=== PATIENT | female | born 1975 | race Hispanic/Latino ===

== ENCOUNTER → 2017-11-07 12:20 | Outpatient (CLI) | payer OTHER, SELFPAY ==
--- NOTE | 2017-11-07 12:43 | DI.MG.S_ITS ---
Patient Name: POLY GOODWIN date: 1975 Sex: F Attending Physician: Agustin Indications: Date: 11/07/2017 12:37 At the request of: JEAN MARIE GARNETT Procedure: MM screening mammo unilat LT UNILATERAL LEFT DIGITAL SCREENING MAMMOGRAM 3D/2D WITH CAD POST MASTECTOMY: 11/07/2017 CLINICAL: Routine screening. Personal history of right breast cancer. Comparison is made to exams dated: 11/03/2016 mammogram, 11/03/2015 mammogram, and 10/30/2014 mammogram - [facility]. There are scattered fibroglandular elements in the left breast. Current study was also evaluated with a Computer Aided Detection (CAD) system. There is possible architectural distortion in the left breast middle depth outer region seen on the craniocaudal view only, best seen on RCC tomosynthesis slice 30/90. There also is possible architectural distortion in the left breast middle depth upper region seen on the mediolateral oblique view only, best seen on RMLO tomosynthesis slice 27/100. There are benign appearing calcifications in the left breast. No other significant masses or calcifications are seen in the breast. IMPRESSION: INCOMPLETE: NEEDS ADDITIONAL IMAGING EVALUATION The possible architectural distortion in the left breast middle depth outer region seen on the craniocaudal view only is indeterminate. Additional views with possible ultrasound are recommended. The possible architectural distortion in the left breast middle depth upper region seen on the mediolateral oblique view only is indeterminate. Additional views with possible ultrasound are recommended. This exam was interpreted at Station ID: [id number]. Continued Report - Page 2 of 2 Patient Name: POLY GOODWIN date: 1975 Sex: F Attending Physician: Agustin Indications: Date: 11/07/2017 12:37 At the request of: JEAN MARIE GARNETT Procedure: MM screening mammo unilat LT NOTE: For mammograms, a report in lay terms will be sent to the patient. Approximately 15% of breast malignancies will not be visualized mammographically. In the management of a palpable breast mass, a negative mammogram must not discourage biopsy of a clinically suspicious lesion. Electronically Signed By: David Troy M.D. ecl/:11/07/2017 19:38:28 copy to: Dayna Leija copy to: SLOANE HANCOCK letter sent: Additional Imaging Needed ACR BI-RADS Category 0: Incomplete 0785F
== END ==
PROVIDERS: PCP Family Medicine; Visit Provider Obstetrics & Gynecology
DX: Z12.31 Encounter for screening mammogram for malignant neoplasm of breast (principal); Z85.3 Personal history of malignant neoplasm of breast
CPT/HCPCS: 77063; 77065

== ENCOUNTER → 2017-11-21 09:18 | Outpatient (CLI) | payer OTHER, SELFPAY ==
--- NOTE | 2017-11-21 | DI.MG.S_ITS ---
UNILATERAL LEFT DIGITAL DIAGNOSTIC MAMMOGRAM 3D/2D WITH ADDITIONAL VIEWS: 11/21/2017 CLINICAL: Additional evaluation requested from prior study. Comparison is made to exams dated: 11/07/2017 mammogram, 11/03/2016 mammogram, and 11/03/2015 mammogram - [facility]. There are scattered fibroglandular elements in the left breast. No significant masses, calcifications, or other findings are seen in the breast. Questioned distortion is related to interval breast surgery. IMPRESSION: NEGATIVE Interval benign post surgical change. There is no mammographic evidence of malignancy. A 1 year screening mammogram is recommended. This exam was interpreted at Station ID: [id number]. NOTE: For mammograms, a report in lay terms will be sent to the patient. Approximately 15% of breast malignancies will not be visualized mammographically. In the management of a palpable breast mass, a negative mammogram must not discourage biopsy of a clinically suspicious lesion. Electronically Signed By: Jarrett Ackerman M.D. cj/:11/21/2017 13:09:10 copy to: Dayna Leija copy to: SLOANE HANCOCK letter sent: Normal Exam ACR BI-RADS Category 1: Negative 3341F
== END ==
PROVIDERS: PCP Family Medicine; Visit Provider Obstetrics & Gynecology
DX: R92.8 Other abnormal and inconclusive findings on diagnostic imaging of breast (principal)
CPT/HCPCS: 77065; G0279

== ENCOUNTER → 2017-12-19 10:56 | Outpatient (CLI) | payer OTHER, SELFPAY ==
[2017-12-19 11:26] LABS: Add Manual Diff / Slide Review NO; Basophils Percent Auto 0.9 % (0-2); Eosinophils Percent Auto 0.7 % (2-4); Hematocrit 42.3 % (36-46); Hemoglobin 14.7 g/dL (12.0-16.0); Lymphocytes Percent Auto 33.7 % (25-40); Mean Corpuscular HGB Conc 34.8 % (30-36); Mean Corpuscular Hemoglobin 31.4 PG (26-34); Mean Corpuscular Volume 90.1 fL (80-100); Monocytes Percent Auto 6.9 % (3-14); Neutrophils Absolute Auto 3200 /uL (3000-5900); Neutrophils Percent Auto 57.8 % (50-75); Platelet Count 218 X10^3/uL (150-400); Red Blood Cell Count 4.69 X10^6/uL (4.0-5.2); Red Cell Distribution Width 13.4 % (11.6-14.8); White Blood Cell Count 5.5 X10^3/uL (4.5-11.0)
[2017-12-19 11:41] LABS: Alanine Aminotransferase 88 IU/L (9-52); Albumin 4.4 g/dL (3.5-5.0); Albumin Globulin Ratio 1.5 (1.0-2.8); Alkaline Phosphatase 99 U/L (38-126); Aspartate Aminotransferase 94 IU/L (14-36); BUN Creatinine Ratio 16.7 (6-22); Bilirubin Total 0.6 mg/dL (0.2-1.3); Blood Urea Nitrogen 10 mg/dL (7-17); Calcium 9.6 mg/dL (8.4-10.2); Carbon Dioxide 25 mmol/L (22-32); Chloride 107 mmol/L (98-107); Estimated Glomerular Filt Rate > 60.0 mL/min (>60); Globulin 2.9 g/dL (1.7-4.1); Glucose 114 mg/dL (70-100); HEMOLYSIS < 15 (0-50); Sodium 142 mmol/L (137-145); Total Protein 7.3 g/dL (6.3-8.2)
[2017-12-19 12:51] LABS: Vitamin D 25 Hydroxy (D3) 31.1 ng/mL (30.0-100.0)
--- NOTE | 2017-12-19 14:36 | PC.NURSE ---
labs today for visit on 12/23. Liver enzymes have been elevated since 12/06.
[2017-12-21 15:16] LABS: Cancer Antigen 27.29 12 U/mL (< 38)
== END ==
PROVIDERS: Nurse Practitioner Gerontology; PCP Family Medicine; Visit Provider Internal Medicine Hematology & Oncology
DX: C50.919 Malignant neoplasm of unspecified site of unspecified female breast (principal); R94.5 Abnormal results of liver function studies
CPT/HCPCS: 36415; 80053; 82306; 85025; 86300

== ENCOUNTER → 2018-06-19 10:40 | Outpatient (CLI) | payer OTHER, SELFPAY ==
[2018-06-19 11:11] LABS: Add Manual Diff / Slide Review NO; Basophils Absolute Auto 100 /uL (0-100); Basophils Percent Auto 0.9 % (0-2); Eosinophils Absolute Auto 0 /uL (0-450); Eosinophils Percent Auto 0.9 % (2-4); Hematocrit 43.4 % (36-46); Hemoglobin 14.9 g/dL (12.0-16.0); Lymphocytes Absolute Auto 2100 /uL (1100-4500); Lymphocytes Percent Auto 38.6 % (25-40); Mean Corpuscular HGB Conc 34.3 % (30-36); Mean Corpuscular Hemoglobin 31.5 PG (26-34); Monocytes Absolute Auto 400 /uL (0-900); Monocytes Percent Auto 7.3 % (3-14); Neutrophils Absolute Auto 2800 /uL (1500-7000); Neutrophils Percent Auto 52.3 % (50-75); Platelet Count 207 X10^3/uL (150-400); Red Blood Cell Count 4.72 X10^6/uL (4.0-5.2); Red Cell Distribution Width 13.1 % (11.6-14.8); White Blood Cell Count 5.4 X10^3/uL (4.5-11.0)
[2018-06-19 11:25] LABS: Alanine Aminotransferase 133 IU/L (9-52); Albumin 4.6 g/dL (3.5-5.0); Albumin Globulin Ratio 1.4 (1.0-2.8); Alkaline Phosphatase 105 U/L (38-126); Aspartate Aminotransferase 113 IU/L (14-36); Bilirubin Total 0.4 mg/dL (0.2-1.3); Blood Urea Nitrogen 12 mg/dL (7-17); Calcium 9.6 mg/dL (8.4-10.2); Carbon Dioxide 26 mmol/L (22-32); Chloride 103 mmol/L (98-107); Estimated Glomerular Filt Rate > 60.0 mL/min (>60); Globulin 3.3 g/dL (1.7-4.1); Glucose 120 mg/dL (70-100); HEMOLYSIS < 15 (0-50); Potassium 3.6 mmol/L (3.4-5.1); Sodium 140 mmol/L (137-145); Total Protein 7.9 g/dL (6.3-8.2)
[2018-06-23 17:38] LABS: Cancer Antigen 27.29 11 U/mL (< 38)
== END ==
PROVIDERS: PCP Family Medicine; Visit Provider Nurse Practitioner Gerontology
DX: C50.211 Malignant neoplasm of upper-inner quadrant of right female breast (principal); Z90.11 Acquired absence of right breast and nipple
CPT/HCPCS: 80053; 85025; 86300

== ENCOUNTER → 2018-06-30 10:38 | Outpatient (CLI) | payer OTHER, SELFPAY ==
--- NOTE | 2018-06-30 10:39 | DI.US.S_ITS ---
PROCEDURE: US ABDOMEN COMPLETE INDICATIONS: BREAST CANCER ABNORMAL LIVER LABS TECHNIQUE: Real-time scanning was performed of the abdominal and retroperitoneal organs, with image documentation. COMPARISON: None. FINDINGS: Liver: Liver is poorly visualized secondary to patient body habitus. It appears to demonstrate increased echogenicity. Gallbladder: Gallbladder demonstrates multiple increased echogenicity within the lumen. Gallbladder wall is within normal limits measuring approximately 2 mm. Biliary ducts: Intrahepatic bile ducts are non-dilated. Extrahepatic bile duct caliber measures 3.6 mm. Normal is 6-7 mm or less in diameter, or 10 mm or less post-cholecystectomy. Pancreas: Visualized portions of the pancreas are sonographically normal. Spleen: Spleen is normal in size and homogeneous in echotexture. Kidneys: Kidneys are normal in size and echotexture. Right kidney measures 9.4 cm long; left kidney measures 9.6 cm long. No hydronephrosis or nephrolithiasis. No solid masses. Aorta: Visualized aorta is normal in caliber at less than 3 cm. Iliacs: Proximal common iliac arteries are normal in caliber at less than 2.5 cm. IVC: Intrahepatic inferior vena cava is patent. Miscellaneous: No free abdominal fluid. IMPRESSION: 1. Poorly visualized liver appearing to demonstrate increased echogenicity suggestive of steatosis. If further concern exists for potential hepatic lesions, CT is recommended. 2. Cholelithiasis without imaging evidence of cholecystitis. Dictated by: Apple Zavala M.D. on 07/03/2018 at 17:28 Approved by: Apple Zavala M.D. on 07/03/2018 at 17:30
== END ==
PROVIDERS: Family Provider Family Medicine; PCP Family Medicine; Visit Provider Nurse Practitioner Gerontology
DX: C50.919 Malignant neoplasm of unspecified site of unspecified female breast (principal); R79.89 Other specified abnormal findings of blood chemistry; K80.80 Other cholelithiasis without obstruction
CPT/HCPCS: 76700

== ENCOUNTER → 2018-11-27 12:02 | Outpatient (CLI) | payer OTHER, SELFPAY ==
--- NOTE | 2018-11-27 | DI.MG.S_ITS ---
UNILATERAL LEFT DIGITAL SCREENING MAMMOGRAM 3D/2D WITH CAD POST MASTECTOMY: 11/27/2018 CLINICAL: Routine screening. Personal history of right breast cancer. Comparison is made to exams dated: 11/21/2017 mammogram, 11/07/2017 mammogram, and 11/03/2016 mammogram - [facility]. There are scattered fibroglandular elements in left breast. Current study was also evaluated with a Computer Aided Detection (CAD) system. No significant masses, calcifications, or other findings are seen in the breast. There has been no significant interval change. IMPRESSION: NEGATIVE There is no mammographic evidence of malignancy. A 1 year screening mammogram is recommended. This exam was interpreted at Station ID: [id number]. NOTE: For mammograms, a report in lay terms will be sent to the patient. Approximately 15% of breast malignancies will not be visualized mammographically. In the management of a palpable breast mass, a negative mammogram must not discourage biopsy of a clinically suspicious lesion. Electronically Signed By: Maddi bar/kamilah:11/27/2018 16:22:27 copy to: Shaunna Velez copy to: FLACO CEDILLO letter sent: Normal Exam ACR BI-RADS Category 1: Negative 3341F
== END ==
PROVIDERS: PCP Family Medicine; Visit Provider Family Medicine
DX: Z12.31 Encounter for screening mammogram for malignant neoplasm of breast (principal); Z85.3 Personal history of malignant neoplasm of breast
CPT/HCPCS: 77063; 77067

== ENCOUNTER → 2019-02-07 15:12 | Outpatient (CLI) | payer OTHER, SELFPAY ==
[2019-02-08 16:22] LABS: Cancer Antigen 125 17 U/mL (0-35)
== END ==
PROVIDERS: PCP Family Medicine; Visit Provider Obstetrics & Gynecology
DX: N83.8 Other noninflammatory disorders of ovary, fallopian tube and broad ligament (principal)
CPT/HCPCS: 36415; 86304

== ENCOUNTER 2019-03-15 10:01 | Day surgery (SDC) | payer OTHER, SELFPAY ==
[2019-03-07 15:12] VITALS: BMI 37.2
[2019-03-15] VITALS (7 sets, daily range): BP systolic 119–142; BP diastolic 74–94; PULSE 80–103; RESP 9–17; TEMP 36.2–36.6; O2SAT 92–99; BMI 37.2
--- NOTE | 2019-03-15 | PATH_ITS ---
[facility] Accession Number: [id number] . 01 Material submitted: . ovary - LEFT OVARY? . 01 Diagnosis: Left Ovary, Oophorectomy: Mature adipose tissue with fat necrosis and fibrous adhesions. Ovarian tissue not identified. No evidence of neoplasm. MRV 03/20/2019 1427 Local . 01 Electronically signed: . Karthik Carreno MD, PhD, Pathologist NPI- [id number] . 01 Gross description: . Received in formalin, labeled left ovary, is a piece of pale yellow rubbery tissue partially bisected (3.3 x 2.0 x 0.4 cm). Entirely submitted in cassettes A1 and A2 with each half bisected further. ([id number]) /MRV 03/16/2019 1341 Local . 01 Pathologist provided ICD-10: N83.8, N99.4 . 01 CPT . 935280 Performed at: [address] [facility] [address], [place], [place] [id number] MD Ricky Gaming MD Phone: [phone]
[2019-03-15] MEDS: LACTATED RINGERS 1,000 ML 100 ML IV (10:50)
--- NOTE | 2019-03-15 10:50 | PM.HP.1 ---
History of Present Illness History of Present Illness Date Patient Seen: 03/15/19 Time Patient Seen: 10:50 Chief complaint: [id number] Narrative: Patient is a 43-year-old 4 para 3 with a left ovarian cyst Patient previously had her uterus and right ovary and both tubes removed. Patient History Medical History (Updated 06/22/18 @ 12:37 by ASIA Stokes) Breast cancer, right (Resolved 2014) 4 (Resolved) Normal Papanicolaou smear (Resolved) Surgical History (Updated 03/07/19 @ 15:17 by Pushpa Pal RN) History of third molar tooth extraction (Resolved 1998) History of total mastectomy (Resolved 2014) S/P breast reconstruction, right (Acute) Status post delivery (Resolved 11/05/13) Status post dilation and curettage (Resolved 2010) Status post laparoscopic supracervical hysterectomy (Resolved 02/02/16) Family & Social History Family History (Updated 01/05/18 @ 15:07 by Maci Claudio) Grandfather Diabetes mellitus Grandmother Diabetes mellitus Grandmother Diabetes mellitus Smoker Emphysema of lung Father No problems noted. Social History: household members children Tobacco & Substance use: Smoking Status Never smoker Meds Home Medications and Allergies Home Medications Medication Instructions Recorded Confirmed Type cholecalciferol (vitamin D3) 2,000 mg PO QDAY #0 03/25/17 03/15/19 History [Vitamin D3] multivitamin [Multiple Vitamins] 1 tab PO QDAY #0 03/25/17 03/15/19 History tamoxifen 20 mg PO DAILY #90 tab 09/27/18 03/15/19 Rx Allergies Allergy/AdvReac Type Severity Reaction Status Date / Time No Known Drug Allergies Allergy Verified 03/15/19 10:29 Exam Vital Signs (past 8 hours): - 03/15/19 10:34 Temperature 97.8 F Pulse Rate 89 Respiratory Rate 17 Blood Pressure 142/94 H Pulse Oximetry 98 Oxygen Delivery Method Room Air Narrative Exam Narrative: HEENT: No thyromegaly, no anterior cervical or supraclavicular lymphadenopathy. Breasts: Status post reconstruction Lungs:Clear to auscultation bilaterally, no wheezes. Cardiovascular: Regular rate and rhythm, no murmurs, rubs, or gallops. Abdomen: Well-healed scars. No hepatosplenomegaly. No masses palpable. External genitalia: Normal Vagina: Normal Cervix: Well supported Bimanual exam: Left adnexal fullness and tenderness Rectal: No masses. Assessment & Plan Assessment & Plan narrative: Assessment: 43-year-old 4 para 3 with a left ovarian cyst Plan: Laparoscopic removal of the left ovary The risks, benefits, and alternatives to the procedure were explained to the patient. The risks including bleeding, infection, injury to bowel, bladder, or ureters. She understands these risks and agrees to proceed. A full par Q was held and consent form was signed. Time Spent With Patient Time with patient: 15-24 minutes
--- NOTE | 2019-03-15 10:52 | PM.PREOP ---
Pre-operative Note Interval Note History & Physical reviewed/Exam performed by Physician: Yes Changes to H&P: No
--- NOTE | 2019-03-15 11:35 | SUR.OPER ---
Lithotomy on padded OR bed, head on pillow, arms gel wrapped and tucked at sides. Legs secured in padded yellow fins stirrups.
[2019-03-15] MEDS: BUPIVACAINE 0.5% W/ EPI (PF) VIAL 30 ML INJ (11:40)
--- NOTE | 2019-03-19 06:43 | PM.GYNOP.1 ---
Operative Date/Time/Diagnoses Date of procedure: 03/15/19 Time of procedure: 12:30 Pre-op diagnosis: Left ovarian cyst Post-op diagnosis: same Procedure & Clinicians Procedure: Procedures Operation Date: 03/15/19 11:15 Actual Procedures Side Surgeon p Laparoscopic Oophorectomy, lysis of omental adhesions Left Shaunna Velez MD Indications: Left ovarian cyst Surgeon: Shaunna Velez Anesthesia Type: General Operative Notes Findings: Adhesions of the left adnexa Omental to anterior abdominal wall adhesions Normal liver, gallbladder, and appendix Closure Type: primary Specimen(s): other (Left ovary) Estimated blood loss (mL): 10 Blood products transfused: none Procedure in detail: After informed consent was obtained, the patient was taken to the operating room where she was placed in the dorsal supine position. After adequate general endotracheal anesthesia was achieved, she was placed in the dorsal lithotomy position, and prepped and draped in the usual sterile fashion. A time-out was performed. A moistened sponge stick was placed into the vagina. Attention was then turned to the abdomen where 6 cc of 0.5% Marcaine were injected into the umbilical fold. A 5 mm incision was made. A long Veress needle was placed into the peritoneal cavity, and its placement confirmed by aspiration and drop test. The long Veress needle was removed. A long 5 mm trocar was placed without difficulty. Two other incisions were made after 6 cc of 0.5% Marcaine with epinephrine were injected. One was midway between the pubic symphysis and umbilicus on the left side, the other was just above the pubic symphysis. Two long 5 mm trocars were placed under direct visualization. The probe was placed through the lateral trocar. There were significant adhesions around the left adnexa. The ovary was identified and grasped with an atraumatic grasper. Using the Endo Prabhu, the adhesions were taken down around the left ovary. The PlasmaKinetic was used to cauterize the infundibulopelvic ligament on the left side. The left ovary was placed into the pelvis. Using the PlasmaKinetic omental to anterior abdominal wall adhesions were taken down with cautery and cut. Hemostasis was achieved. Hemostasis was also achieved in the left adnexa. The 5 mm trocar was removed from the suprapubic area. The incision was extended to 12 mm. A 12 mm trocar was placed. The small endobag was placed through the suprapubic trocar. The ovary was placed into the bag and removed through the trocar. Hemostasis was achieved in the pelvis. The instruments were removed from the abdomen. The CO2 was allowed to escape. The suprapubic incision was closed on the fascia using 0 Vicryl. All of the incisions were closed on the skin with 4-0 Biosyn in a subcuticular fashion. Steri-Strips, 2 x 2, and op site were placed. The moistened sponge stick was removed from the vagina. Sponge, lap, and instrument counts were correct x2. The patient tolerated the procedure well, and was taken to PACU in stable condition. Complications: none Post-operative Condition: stable Disposition: PACU Plan for aftercare: Home after recovery
== END 2019-03-15 13:20 | disposition home or self-care (01) ==
PROVIDERS: PCP Family Medicine; Visit Provider Obstetrics & Gynecology
PROC: (CPT 58661; principal; 2019-03-15 11:15)
DX: N83.8 Other noninflammatory disorders of ovary, fallopian tube and broad ligament (principal); K66.0 Peritoneal adhesions (postprocedural) (postinfection)
CPT/HCPCS: 58661; J1100; J1885; J2250; J2405; J2704; J3010

== ENCOUNTER → 2020-01-03 11:03 | Outpatient (CLI) | payer OTHER, SELFPAY ==
--- NOTE | 2020-01-03 11:14 | DI.MG.S_ITS ---
Patient Name: POLY GOODWIN date: 1975 Sex: F Attending Physician: Pola Indications: Date: 01/03/2020 11:11 At the request of: ROSI SHAH Procedure: MM screening mammo unilat LT UNILATERAL LEFT DIGITAL SCREENING MAMMOGRAM 3D/2D WITH CAD POST MASTECTOMY: 01/03/2020 CLINICAL: Routine screening. Personal history of right breast cancer. Comparison is made to exams dated: 11/21/2017 mammogram, 11/07/2017 mammogram, 11/03/2016 mammogram, and 11/03/2015 mammogram - [facility]. There are scattered fibroglandular elements in left breast. Current study was also evaluated with a Computer Aided Detection (CAD) system. No significant masses, calcifications, or other findings are seen in the breast. There has been no significant interval change. IMPRESSION: NEGATIVE There is no mammographic evidence of malignancy. A 1 year screening mammogram is recommended. This exam was interpreted at Station ID: [id number]. NOTE: For mammograms, a report in lay terms will be sent to the patient. Approximately 15% of breast malignancies will not be visualized mammographically. In the management of a palpable breast mass, a negative mammogram must not discourage biopsy of a clinically suspicious lesion. Electronically Signed By: Farzana lopez/kamilah:01/03/2020 12:30:28 copy to: Shaunna Velez copy to: FLACO CEDILLO letter sent: Normal Exam Continued Report - Page 2 of 2 Patient Name: POLY GOODWIN date: 1975 Sex: F Attending Physician: Pola Indications: Date: 01/03/2020 11:11 At the request of: ROSI SHAH Procedure: MM screening mammo unilat LT ACR BI-RADS Category 1: Negative 3341F
== END ==
PROVIDERS: PCP Family Medicine; Referring Provider Family Medicine; Visit Provider Internal Medicine Hematology & Oncology
DX: Z12.31 Encounter for screening mammogram for malignant neoplasm of breast (principal); Z85.3 Personal history of malignant neoplasm of breast
CPT/HCPCS: 77063; 77067

== ENCOUNTER → 2021-03-24 09:15 | Outpatient (CLI) | payer OTHER, SELFPAY ==
--- NOTE | 2021-03-24 09:16 | DI.MG.S_ITS ---
UNILATERAL LEFT DIGITAL SCREENING MAMMOGRAM 3D/2D WITH CAD POST MASTECTOMY: 03/24/2021 CLINICAL: Routine screening. Personal history of right breast cancer. Comparison is made to exams dated: 01/03/2020 mammogram, 11/27/2018 mammogram, and 11/21/2017 mammogram - [facility]. There are scattered fibroglandular elements in left breast. Current study was also evaluated with a Computer Aided Detection (CAD) system. No significant masses, calcifications, or other findings are seen in the breast. There has been no significant interval change. IMPRESSION: NEGATIVE There is no mammographic evidence of malignancy. A 1 year screening mammogram is recommended. This exam was interpreted at Station ID: [id number]. NOTE: For mammograms, a report in lay terms will be sent to the patient. Approximately 15% of breast malignancies will not be visualized mammographically. In the management of a palpable breast mass, a negative mammogram must not discourage biopsy of a clinically suspicious lesion. Electronically Signed By: Elio lyons/kamilah:03/24/2021 12:01:34 copy to: Shaunna Velez letter sent: Normal Exam ACR BI-RADS Category 1: Negative 3341F
== END ==
PROVIDERS: Referring Provider Family Medicine; Visit Provider Family Medicine
DX: Z12.31 Encounter for screening mammogram for malignant neoplasm of breast (principal); Z85.3 Personal history of malignant neoplasm of breast
CPT/HCPCS: 77063; 77067

== ENCOUNTER → 2022-04-09 13:47 | Outpatient (CLI) | payer OTHER, SELFPAY ==
--- NOTE | 2022-04-09 13:48 | DI.MG.S_ITS ---
UNILATERAL LEFT DIGITAL SCREENING MAMMOGRAM 3D/2D WITH CAD: 04/09/2022 CLINICAL: Routine screening. Personal history of right breast cancer. Comparison is made to exams dated: 03/24/2021 mammogram, 01/03/2020 mammogram, and 11/27/2018 mammogram - [facility]. There are scattered areas of fibroglandular density in the left breast (category b / 25%-50% glandular tissue). Current study was also evaluated with a Computer Aided Detection (CAD) system. No significant masses, calcifications, or other findings are seen in the breast. There has been no significant interval change. IMPRESSION: NEGATIVE There is no mammographic evidence of malignancy. A 1 year screening mammogram is recommended. This exam was interpreted at Station ID: [id number]. NOTE: For mammograms, a report in lay terms will be sent to the patient. Approximately 15% of breast malignancies will not be visualized mammographically. In the management of a palpable breast mass, a negative mammogram must not discourage biopsy of a clinically suspicious lesion. Electronically Signed By: Raymond Dinh M.D., jr/kamilah:04/09/2022 14:16:11 copy to: Shaunna Velez letter sent: Normal Exam ACR BI-RADS Category 1: Negative 3341F
== END ==
PROVIDERS: Referring Provider Internal Medicine Hematology & Oncology; Visit Provider Internal Medicine Hematology & Oncology
DX: Z12.31 Encounter for screening mammogram for malignant neoplasm of breast (principal); C50.911 Malignant neoplasm of unspecified site of right female breast
CPT/HCPCS: 77063; 77067

== ENCOUNTER → 2023-04-11 13:16 | Outpatient (CLI) | payer OTHER, SELFPAY ==
--- NOTE | 2023-04-11 13:17 | DI.MG.S_ITS ---
UNILATERAL LEFT DIGITAL SCREENING MAMMOGRAM 3D/2D WITH CAD POST MASTECTOMY: 04/11/2023 CLINICAL: Routine screening. Personal history of right breast cancer. Comparison is made to exams dated: 04/09/2022 mammogram, 03/24/2021 mammogram, and 01/03/2020 mammogram - [facility]. There are scattered areas of fibroglandular density in the left breast (category b / 25%-50% glandular tissue). Current study was also evaluated with a Computer Aided Detection (CAD) system. No significant masses, calcifications, or other findings are seen in the breast. There has been no significant interval change. IMPRESSION: NEGATIVE There is no mammographic evidence of malignancy. A 1 year screening mammogram is recommended. This exam was interpreted at Station ID: [id number]. NOTE: For mammograms, a report in lay terms will be sent to the patient. Approximately 15% of breast malignancies will not be visualized mammographically. In the management of a palpable breast mass, a negative mammogram must not discourage biopsy of a clinically suspicious lesion. Electronically Signed By: Maddi bar/kamilah:04/11/2023 15:57:15 copy to: Shaunna Velez letter sent: Normal Exam ACR BI-RADS Category 1: Negative 3341F
== END ==
PROVIDERS: PCP Nurse Practitioner; Referring Provider Internal Medicine Hematology & Oncology; Visit Provider Internal Medicine Hematology & Oncology
DX: Z12.31 Encounter for screening mammogram for malignant neoplasm of breast (principal); Z85.3 Personal history of malignant neoplasm of breast
CPT/HCPCS: 77063; 77067

== ENCOUNTER → 2023-05-24 10:43 | Outpatient (CLI) | payer OTHER, SELFPAY ==
[2023-05-24 11:44] LABS: Alanine Aminotransferase 25 IU/L (<35); Albumin 4.5 g/dL (3.5-5.0); Albumin Globulin Ratio 1.6 (1.0-2.8); Alkaline Phosphatase 96 U/L (38-126); Aspartate Aminotransferase 29 IU/L (14-36); BUN Creatinine Ratio 24.5 (6-22); Bilirubin Total 0.7 mg/dL (0.2-1.3); Blood Urea Nitrogen 13 mg/dL (7-17); Calcium 9.8 mg/dL (8.4-10.2); Carbon Dioxide 23 mmol/L (22-32); Chloride 103 mmol/L (98-107); Cholesterol 226 mg/dL (140-199); Estimated Glomerular Filt Rate > 60 mL/min (>60); Globulin 2.9 g/dL (1.7-4.1); Glucose 155 mg/dL (70-100); HDL Cholesterol 56 mg/dL (40-60); HEMOLYSIS 48 (0-50); LDL Cholesterol Calculated 121 mg/dL (<100); Potassium 4.6 mmol/L (3.4-5.1); Sodium 136 mmol/L (137-145); Total Protein 7.4 g/dL (6.3-8.2); Triglycerides 246 mg/dL (35-150)
[2023-05-24 11:57] LABS: Add Manual Diff / Slide Review NO; Basophils Absolute Auto 0 /uL (0-100); Basophils Percent Auto 0.6 % (0-2); Eosinophils Absolute Auto 0 /uL (0-450); Eosinophils Percent Auto 0.7 % (2-4); Hematocrit 42.1 % (36-46); Hemoglobin 14.5 g/dL (12.0-16.0); Lymphocytes Absolute Auto 1900 /uL (1100-4500); Lymphocytes Percent Auto 28.6 % (25-40); Mean Corpuscular HGB Conc 34.5 % (30-36); Monocytes Absolute Auto 400 /uL (0-900); Monocytes Percent Auto 6.9 % (3-14); Neutrophils Absolute Auto 4100 /uL (1500-7000); Neutrophils Percent Auto 63.2 % (50-75); Platelet Count 199 X10^3/uL (150-400); Red Blood Cell Count 4.84 X10^6/uL (4.0-5.2); Red Cell Distribution Width 13.7 % (11.6-14.8); White Blood Cell Count 6.5 X10^3/uL (4.5-11.0)
[2023-05-24 12:01] LABS: Free T3, Triiodothyronine Free 4.02 pg/mL (2.77-5.27); Free T4, Direct Thyroxine 1.08 ng/dL (0.78-2.19)
[2023-05-24 12:15] LABS: Thyroid Stimulating Hormone 1.08 uIU/mL (0.47-4.68)
[2023-05-24 12:40] LABS: HIV 1 & 2 Ab/Ag 4th Gen Combo NEGATIVE (NEGATIVE); Hep C Virus Ab w/Reflex Quant NEGATIVE s/c (NEGATIVE)
[2023-05-24 12:47] LABS: Creatinine Urine Random 62.8 mg/dL
[2023-05-24 12:52] LABS: Microalbumin Urine Random < 0.6 mg/dL (0-1.6)
== END ==
PROVIDERS: PCP Nurse Practitioner; Referring Provider Nurse Practitioner; Visit Provider Nurse Practitioner
DX: Z00.00 Encounter for general adult medical examination without abnormal findings (principal); Z11.59 Encounter for screening for other viral diseases; Z11.4 Encounter for screening for human immunodeficiency virus [HIV]
CPT/HCPCS: 36415; 80053; 80061; 82043; 82570; 84439; 84443; 84481; 85025; 86803; 87389

== ENCOUNTER → 2024-04-27 12:57 | Outpatient (CLI) | payer OTHER, SELFPAY ==
--- NOTE | 2024-04-27 12:58 | DI.MG.S_ITS ---
UNILATERAL LEFT DIGITAL SCREENING MAMMOGRAM 3D/2D WITH CAD POST MASTECTOMY: 04/27/2024 CLINICAL: Routine screening. Personal history of right breast cancer. Comparison is made to exams dated: 04/11/2023 mammogram, 04/09/2022 mammogram, 03/24/2021 mammogram, and 01/03/2020 mammogram - [facility]. There are scattered areas of fibroglandular density (category b / 25%-50% glandular tissue). Current study was also evaluated with a Computer Aided Detection (CAD) system. No significant masses, calcifications, or other findings are seen in the breast. There has been no significant interval change. IMPRESSION: NEGATIVE There is no mammographic evidence of malignancy. A 1 year screening mammogram is recommended. This exam was interpreted at Station ID: [id number]. NOTE: For mammograms, a report in lay terms will be sent to the patient. Approximately 15% of breast malignancies will not be visualized mammographically. In the management of a palpable breast mass, a negative mammogram must not discourage biopsy of a clinically suspicious lesion. Electronically Signed By: Reno magallon/kamilah:04/27/2024 13:58:47 copy to: Shaunna Velez copy to: JULIETTE MARIE letter sent: Normal Exam ACR BI-RADS Category 1: Negative
== END ==
LOC: MAMMO 12:58
PROVIDERS: PCP Student in an Organized Health Care Education/Training Program; Referring Provider Student in an Organized Health Care Education/Training Program; Visit Provider Student in an Organized Health Care Education/Training Program
DX: Z12.31 Encounter for screening mammogram for malignant neoplasm of breast (principal); Z85.3 Personal history of malignant neoplasm of breast; Z90.11 Acquired absence of right breast and nipple
CPT/HCPCS: 77063; 77067

== ENCOUNTER 2024-05-14 12:26 | Day surgery (SDC) | payer OTHER, SELFPAY ==
[2024-05-14 12:50] VITALS: BP 116/80; PULSE 70; RESP 14; TEMP 36.2; O2SAT 98
[2024-05-14] MEDS: SODIUM CHLORIDE 0.9% 1,000 ML 150 ML IV (12:54)
--- NOTE | 2024-05-14 13:32 | PM.HP.IH.1 ---
History of Present Illness History of Present Illness Date Patient Seen: 05/14/24 Time Patient Seen: 13:32 Chief complaint: SDC Narrative: 48-year-old white female presents for initial screening colonoscopy. No previous colonoscopy. Patient had a weight loss over the past year using terms appetite, has not used it for the last 3 months due to cost. [facility] Medical History (Updated 05/14/24 @ 13:33 by Guille Avendano MD) Colon cancer screening (~05/14/24) Overweight (BMI 25.0-29.9) History of breast cancer in female Hypertension 4 Normal Papanicolaou smear Breast cancer, right (2014) Surgical History S/P breast reconstruction, right History of total mastectomy (2014) Status post laparoscopic supracervical hysterectomy (02/02/16) Status post dilation and curettage (2010) History of third molar tooth extraction (1998) Status post delivery (11/05/13) Family History Grandfather Diabetes mellitus Grandmother Diabetes mellitus Grandmother Diabetes mellitus Smoker Emphysema of lung Father No problems noted. Social History household members: children Smoking Status: Never smoker alcohol intake: never Meds Home Medications and Allergies Home Medications Medication Instructions Recorded Confirmed Type cholecalciferol (vitamin D3) 10 2,000 mg PO QDAY ##0 03/25/17 05/14/24 History mcg (400 unit) capsule (Vitamin D3) multivitamin (Multiple Vitamins 1 tab PO QDAY ##0 03/25/17 05/14/24 History tablet) lisinopril 5 mg tablet 5 mg PO DAILY #90 tabs 05/24/23 05/14/24 Rx tirzepitide See Rx Instructions .Route 11/17/23 05/14/24 Rx .COMPLEX 90 days #3 ea peg 3350-electrolytes 236 240 ml PO Q10M #4,000 mL 05/03/24 05/14/24 Rx gram-22.74 gram-6.74 gram-5.86 gram solution (Golytely) Allergies Allergy/AdvReac Type Severity Reaction Status Date / Time No Known Drug Allergies Allergy Verified 05/24/23 10:05 Review of Systems Review of Systems ROS: Yes All systems reviewed with the patient and are negative except as otherwise documented Exam Vital Signs (past 8 hours): - 05/14/24 12:50 Temperature 97.2 F L Pulse Rate 70 Respiratory Rate 14 Blood Pressure 116/80 Pulse Oximetry 98 Oxygen Delivery Method Room Air Oxygen Delivery Method Room Air Narrative Exam Narrative: Gen: NAD, sitting comfortably in bed, appears well HEENT: Sclera are anicteric, head is normocephalic and atraumatic, trachea is midline. CV: RRR, no JVD Resp: clear to auscultation bilaterally, equal chest wall movement bilaterally Abd: soft, nontender, normoactive bowel sounds Ext: no edema, full range of motion Neuro: Cranial nerves II-XII grossly intact, no focal deficits Skin: No erythema or ecchymosis Assessment & Plan Assessment and plan (1) Colon cancer screening: Status: Acute Assessment & Plan narrative: Patient presents for colonoscopy Risks, benefits, alternatives to colonoscopy explained, including but not limited to bowel perforation or other serious complication requiring surgery at less than 1 in 5000 colonoscopies, abdominal pain, cramping or bleeding and less than 1% of colonoscopies, and the chances that we find a diagnosis that would require further intervention of about 2%. Patient agrees to proceed. Time-Based Coding :: [TOTAL MINUTES] spent with patient and on the chart (including review of chart, obtaining history, exam, reviewing outside data, placing orders, documenting exam and treatment plan, and counseling patient) on [DATE]. [employer] Document charge(s): No
--- NOTE | 2024-05-14 13:51 | PM.OP.COLON ---
Operative Date/Time/Diagnoses Date of procedure: 05/14/24 Time of procedure: 13:52 Pre-op diagnosis: Colon screening Post-op diagnosis: same (Diverticulosis, internal hemorrhoids) Procedure & Clinicians Study performed: Colonoscopy Same procedure as scheduled: Yes Indications: Screening Surgeon: Guille Avendano Procedure Notes SCOAP/Timeout: Performed Procedure in detail: Time-out was performed. Mac was induced. Patient was placed in left lateral decubitus position. The perineum was inspected without any gross abnormality. Lubricated pediatric colonoscope was inserted and advanced to the cecum. The terminal ileum was intubated. The colonoscope was withdrawn slowly inspecting the circumference of the colon. Patient had pancolonic diverticulosis. Very small polyps may have been missed, prep quality was adequate. Retroflexed view of the rectum showed small, non prolapsed nonbleeding internal hemorrhoids. The scope was withdrawn the patient was taken to PACU in good condition. Scope withdrawal time: 6 Sedation minutes: 9 Findings: divertiulosis and internal hemorrhoids Specimen(s): none sent Complications: none Post-procedure Recommendations: Colonoscopy in 10 years Follow up: as needed Disposition: PACU
[2024-05-14 13:55] VITALS: BP 96/69; PULSE 78; RESP 16; TEMP 36.1; O2SAT 97
[2024-05-14 14:00] VITALS: BP 100/71; PULSE 70; RESP 15; O2SAT 97
[2024-05-14 14:07] VITALS: BP 100/69; PULSE 65; RESP 13; O2SAT 97
[2024-05-14 14:13] VITALS: BP 106/76; PULSE 66
== END 2024-05-14 14:30 | disposition home or self-care (01) ==
PROVIDERS: PCP Student in an Organized Health Care Education/Training Program; Referring Provider Surgery; Visit Provider Surgery
PROC: 0DJD8ZZ Inspection of Lower Intestinal Tract, Via Natural or Artificial Opening Endoscopic (ICD-10-PCS; CPT 45378; principal; 2024-05-14 13:30)
DX: Z12.11 Encounter for screening for malignant neoplasm of colon (principal); K57.30 Diverticulosis of large intestine without perforation or abscess without bleeding; K64.8 Other hemorrhoids; I10 Essential (primary) hypertension; Z85.3 Personal history of malignant neoplasm of breast; Z90.710 Acquired absence of both cervix and uterus
CPT/HCPCS: G0121; J2405; J2704

== ENCOUNTER → 2024-05-28 09:47 | Outpatient (CLI) | payer OTHER, SELFPAY ==
[2024-05-28 10:52] LABS: Creatinine Urine Random 12.28 mg/dL
[2024-05-28 10:54] LABS: Hemoglobin A1C% w Est Avg Glu 5.7 % (4.0-6.0)
[2024-05-28 10:57] LABS: Microalbumin Urine Random < 0.6 mg/dL (0-1.6)
[2024-05-28 11:04] LABS: Alanine Aminotransferase 24 IU/L (<35); Albumin Globulin Ratio 1.7 (1.0-2.8); Alkaline Phosphatase 69 U/L (38-126); Aspartate Aminotransferase 29 IU/L (14-36); BUN Creatinine Ratio 22.7 (6-22); Bilirubin Total 0.7 mg/dL (0.2-1.3); Blood Urea Nitrogen 15 mg/dL (7-17); Calcium 10.4 mg/dL (8.4-10.2); Carbon Dioxide 24 mmol/L (22-32); Chloride 103 mmol/L (98-107); Cholesterol 297 mg/dL (140-199); Estimated Glomerular Filt Rate > 60 mL/min (>60); Glucose 114 mg/dL (70-100); HDL Cholesterol 95 mg/dL (40-60); HEMOLYSIS 23 (0-50); LDL Cholesterol Calculated 181 mg/dL (<100); Potassium 4.2 mmol/L (3.4-5.1); Sodium 137 mmol/L (137-145); Triglycerides 107 mg/dL (35-150)
[2024-05-28 18:05] LABS: Add Manual Diff / Slide Review NO; Basophils Absolute Auto 0 /uL (0-100); Basophils Percent Auto 0.4 % (0-2); Eosinophils Absolute Auto 0 /uL (0-450); Eosinophils Percent Auto 0.6 % (2-4); Hematocrit 43.5 % (36-46); Hemoglobin 14.7 g/dL (12.0-16.0); Lymphocytes Absolute Auto 1600 /uL (1100-4500); Lymphocytes Percent Auto 33.7 % (25-40); Mean Corpuscular HGB Conc 33.8 % (30-36); Mean Corpuscular Hemoglobin 30.7 PG (26-34); Mean Corpuscular Volume 90.8 fL (80-100); Monocytes Absolute Auto 300 /uL (0-900); Monocytes Percent Auto 5.7 % (3-14); Neutrophils Absolute Auto 2800 /uL (1500-7000); Neutrophils Percent Auto 59.6 % (50-75); Platelet Count 230 X10^3/uL (150-400); Red Blood Cell Count 4.79 X10^6/uL (4.0-5.2); Red Cell Distribution Width 13.5 % (11.6-14.8); White Blood Cell Count 4.7 X10^3/uL (4.5-11.0)
== END ==
PROVIDERS: PCP Student in an Organized Health Care Education/Training Program; Referring Provider Student in an Organized Health Care Education/Training Program; Visit Provider Student in an Organized Health Care Education/Training Program
DX: R73.9 Hyperglycemia, unspecified (principal); E78.5 Hyperlipidemia, unspecified; I10 Essential (primary) hypertension
CPT/HCPCS: 36415; 80053; 80061; 82043; 82570; 83036; 85025